=== PATIENT | male | born 1960 | race Caucasian/White ===

== ENCOUNTER → 2021-05-08 | Outpatient (CLI) | payer BC ==
[~2021-05-08] MED LIST: IOPAMIDOL 370 MG/ML 200 ML INFUS..BTL INJ ONE; SODIUM CHLORIDE 0.9% 50ML 50 ML ONE
[2021-05-08 08:58] LABS: CREATININE, SERUM 0.86 mg/dL (0.72-1.25)
== END ==
LOC: CT 07:55
PROVIDERS: ATTEND Internal Medicine
DX: R10.13 Epigastric pain (principal); Z80.0 Family history of malignant neoplasm of digestive organs
CPT/HCPCS: 36415; 74177; 82565; 84520; Q9967